=== PATIENT | female | born 1990 | race African-American/Black ===

== ENCOUNTER → 2020-04-05 | Outpatient (CLI) | payer OTHER | END | disposition home or self-care (01) | LOC: LAB 14:37 | PROVIDERS: ATTEND Surgery | DX: Z01.818 Encounter for other preprocedural examination (principal); Z11.59 Encounter for screening for other viral diseases; K43.2 Incisional hernia without obstruction or gangrene | CPT/HCPCS: U0003-CS ==

== ENCOUNTER 2020-04-08 06:07 | Day surgery (SDC) | payer OTHER ==
[~2020-04-08] VITALS: Ht 157.5 cm; Wt 73.5 kg
[~2020-04-08 06:07] MED LIST: ACETAMINOPHEN 500 MG TABLET PO ONE; ceFAZolin SODIUM IV Push 1 GM VIAL. IVP ONE
[2020-04-08] MEDS ORDERED: DEXAMETHASONE SOD PHOS 4 MG/ML VIAL ONE (06:19)
[2020-04-08] MEDS ORDERED: ONDANSETRON PF 4 MG/2 ML VIAL. ONE (06:19)
[2020-04-08] MEDS ORDERED: PROPOFOL 10 MG/ML (20ML) VIAL. IV ONE ×2 (06:19→07:56)
[2020-04-08] MEDS ORDERED: LIDOCAINE 2% PF 5 ML VIAL. ONE (06:19)
[2020-04-08] MEDS ORDERED: ROCURONIUM 50 MG/5 ML VIAL. ONE (06:21)
[2020-04-08] MEDS ORDERED: fentaNYL PF VIAL 100 MCG/2 ML VIAL ONE ×2 (06:22→08:32)
[2020-04-08] MEDS ORDERED: SUCCINYLCHOLINE 200 MG/10 ML VIAL. ONE (06:22)
[2020-04-08] MEDS ORDERED: PNV1TABL78 PO (06:24)
[2020-04-08] MEDS ORDERED: MINERAL OIL for SURGERY 10 ML VIAL. MC ONE (06:53)
[2020-04-08] MEDS ORDERED: BUPIVACAINE-EPI 0.25%-1:200000 MPF 30 ML VIAL. ONE (06:53)
[2020-04-08] MEDS ORDERED: ONDANSETRON PF 4 MG/2 ML VIAL. IV PRN (07:00)
[2020-04-08] MEDS ORDERED: IV RINGERS,LACTATED 1000ML 1,000 ML IV SCH (07:00)
[2020-04-08] MEDS ORDERED: LIDOCAINE 1% PF 2 ML VIAL. ID PRN (07:00)
[2020-04-08] MEDS ORDERED: MORPHINE SULFATE 2 MG/ML VIAL. IV PRN (07:00)
[2020-04-08] MEDS ORDERED: HYDROmorphone 2 MG/ML VIAL IV PRN (07:00)
[2020-04-08] MEDS ORDERED: fentaNYL PF VIAL 100 MCG/2 ML VIAL IV PRN (07:00)
[2020-04-08] MEDS ORDERED: PROCHLORPERAZINE 10 MG/2 ML VIAL. IV PRN (07:00)
[2020-04-08] MEDS ORDERED: MIDAZOLAM HCL/PF 2 MG/2 ML VIAL. ONE (07:55)
[2020-04-08] MEDS ORDERED: SEVOFLURANE 61 TO 120 MINUTES. IH ONE (07:56)
[2020-04-08] MEDS ORDERED: ESMOLOL 100 MG/10 ML VIAL. IVP ONE ×2 (07:56)
[2020-04-08] MEDS ORDERED: NEOSTIGMINE METHYLSULFATE 5 MG/5 ML SYRINGE. ONE (08:05)
[2020-04-08] MEDS ORDERED: GLYCOPYRROLATE 1 MG/5 ML VIAL. ONE (08:05)
[2020-04-08] MEDS ORDERED: PROCHLORPERAZINE 10 MG/2 ML VIAL. ONE (08:33)
--- NOTE | 2020-04-08 08:34 | PDOC4 ---
Operative Note Operative Note Date: 2019 at 08 31 Preoperative diagnosis: Incarcerated ventral hernia Postoperative diagnosis: Same Procedure: Robotic assisted laparoscopic ventral hernia repair with mesh Surgeon: Ricardo Specimen: None Dictation: Patient is 29-year-old female with complaints of a painful bulge in her midline of her abdomen. Procedure of robotic assisted laparoscopic ventral hernia repair with mesh was explained to the patient detail risk-benefit were also discussed including bleeding infection injury to intra-abdominal contents possible necessitating further or open operations alternatives to this procedure also discussed with the patient who seemed to understand and gave both verbal and written consent to have the procedure performed. Patient was taken to the operating room placed in the supine position general anesthesia was initiated once patient was sleeping in bed her abdomen was prepped and draped in usual sterile fashion using ChloraPrep and area in the left upper quadrant was injected with quarter percent Marcaine with epinephrine incision was made with 11 blade scalpel and a 5 mm Visiport was placed under direct visualization into the abdomen and pneumoperitoneum was achieved once this complete 5 mm camera was placed within the abdomen and which was inspected was noted there is a midline hernia with incarcerated omentum. A da Roby 8 mm port was placed in the left midabdomen and 8 mL in the da Roby port was placed in the left lower abdomen all under direct visualization the 5 mm Visiport was changed out for a 8 mm da Roby port. At this point the da Roby robot was brought and docked all port sites surgeon went to the robotic console using grasper and Endo Ld scissors the omentum was reduced from the hernia defect the hernia sac was reduced the hernia defect was then closed with a running 2 OV lock nonabsorbable suture. Ventral light ST light mesh was placed over the hernia defect this was sewn into place with a running 2 OV lock absorbable suture. The peritoneum was closed over the mesh with the nonabsorbable suture. Both sutures were removed the pneumoperitoneum was reduced the da Roby robot was undocked all port sites were closed with 4 subcuticular Monocryl Mastisol Steri-Strips and island dressings were applied. Patient was awakened and extubated in the operating room taken to recovery in stable condition all sponge instrument needle counts listed as correct estimated blood loss 5 mL STEFFI HAMEED MD Apr 08, 2020 08:34
--- NOTE | 2020-04-08 08:35 | DISCH ---
DISCHARGE INSTRUCTIONS Condition on Discharge Condition on Discharge: Stable Activity After Discharge Activity Instructions for Disc: Avoid exertion Other activity instructions: No lifting more than 20 pounds for 2 weeks Diet after Discharge Diet after Discharge: Regular Wound Incision Care Other wound/incision instructi: May shower in 24 hours Contacting the DRShefali after DC Call your doctor for: If your condition worsens Follow-Up Follow up with: Dr. Hameed in 2 weeks STEFFI HAMEED MD Apr 08, 2020 08:35
[2020-04-08] MEDS: fentaNYL PF VIAL 100 MCG/2 ML VIAL IV PRN ×2 (09:07→09:16)
[2020-04-08] MEDS ORDERED: OXYC-325 PO (09:20)
[2020-04-08] MEDS ORDERED: oxyCODONE/APAP 5/325 1 TAB TABLET PO ONE ×2 (09:30)
[2020-04-08 09:48] VITALS: BP 123/79
== END 2020-04-08 10:25 | disposition home or self-care (01) ==
LOC: SURG 06:07 → EDUNIT# 09:30 → SURG 10:25
PROVIDERS: ATTEND Surgery
DX: K43.6 Other and unspecified ventral hernia with obstruction, without gangrene (principal); Z88.8 Allergy status to other drugs, medicaments and biological substances; Z79.899 Other long term (current) drug therapy
CPT/HCPCS: 49653; 81025; A7015; C1781; J0330; J0690; J1100; J2250; J2405; J2704; J2710; J3010; J3490; J7120; S2900; J0780